=== PATIENT | male | born 1955 | race Caucasian/White ===

== ENCOUNTER 2021-03-03 05:04 | Day surgery (SDC) | payer OTHER, BC ==
[2021-02-25 18:47] VITALS: BMI 25.7
[2021-03-03 10:51] VITALS: TEMP 98
[2021-03-03 11:40] VITALS: BP 138/71; PULSE 58
== END 2021-03-03 11:54 | disposition home or self-care (01) ==
LOC: JASU-ENDO 05:04
PROVIDERS: ATTEND Internal Medicine Gastroenterology
PROC: 0DJD8ZZ Inspection of Lower Intestinal Tract, Via Natural or Artificial Opening Endoscopic (ICD-10-PCS; principal; 2021-03-03 10:00)
DX: Z12.11 Encounter for screening for malignant neoplasm of colon (principal); Z86.010 Personal history of colon polyps; K57.30 Diverticulosis of large intestine without perforation or abscess without bleeding; K64.8 Other hemorrhoids

== ENCOUNTER 2021-09-29 14:21 | Emergency (ER) | payer OTHER, BC ==
[2021-09-29 14:44] VITALS: BP 117/66; PULSE 74; TEMP 98.4; BMI 26.6
== END 2021-09-29 15:30 | disposition home or self-care (01) ==
LOC: FER 14:21
DX: S09.90XA Unspecified injury of head, initial encounter (principal); W00.0XXA Fall on same level due to ice and snow, initial encounter
CPT/HCPCS: 70450-TC; 99284-25

== ENCOUNTER 2022-08-04 10:02 | Emergency (ER) | payer OTHER, BC ==
[2022-08-04 10:14] VITALS: BP 130/70; PULSE 73; RESP 16; TEMP 98.6; BMI 28.1
== END 2022-08-04 10:43 | disposition home or self-care (01) ==
LOC: FER 10:02
DX: L03.012 Cellulitis of left finger (principal)
CPT/HCPCS: 99283-25

== ENCOUNTER 2023-05-14 21:54 | Observation (INO) | payer OTHER, BC ==
[2023-05-14 22:24] LABS: HEMATOCRIT 44.7 % (35.4-49); HEMOGLOBIN 15.4 G/dL (11.7-16.9); MCH 28.5 pg (25.7-33.7); MCHC 34.4 g/dl (32.0-35.9); MEAN PLT VOLUME 6.7 fl (7.5-11.1); PLATELET COUNT 245.2 10^3/uL (134-434); RBC 5.39 10^6/uL (4.00-5.60); RDW 15.2 % (11.9-15.9); WHITE BLOOD COUNT 9.4 10^3/uL (4.0-10.8)
[2023-05-14 22:40] LABS: ALBUMIN 4.3 g/dl (3.4-5.0); BLOOD UREA NITROGEN 21.8 mg/dl (7-18); CALCIUM 9.7 mg/dl (8.5-10.1); CREATININE 1.3 mg/dl (0.6-1.3); SGOT/AST 17.9 U/L (15-37); SGPT/ALT 18.4 U/L (7-52); TOT PROT 6.5 g/dl (6.4-8.2)
[2023-05-14 22:54] LABS: PLATELET ESTIMATE ADEQUATE
[2023-05-15 00:12] LABS: BILIRUBIN,TOTAL 0.4 mg/dL (0.2-1)
[2023-05-15] MEDS ORDERED: ASPIRIN 81 MG CHEWABLE TABLETS PO ONE (00:48)
[2023-05-15] MEDS ORDERED: ASPIRIN 81 MG CHEWABLE TABLETS ONE (00:54)
[2023-05-15] MEDS ORDERED: ACETAMINOPHEN 325 MG TABLET (FP) PO PRN (03:34)
[2023-05-15] MEDS ORDERED: DOCUSATE SODIUM 100 MG CAPSULE (FP) PO PRN (03:34)
[2023-05-15] MEDS ORDERED: MELATONIN 5 MG TABLETS PO PRN (03:43)
[2023-05-15 08:02] LABS: HEMOGLOBIN 14.9 G/dL (11.7-16.9); MCH 27.7 pg (25.7-33.7); MCHC 33.1 g/dl (32.0-35.9); MEAN CELL VOLUME 83.5 fl (80-96); PLATELET COUNT 230.8 10^3/uL (134-434); RBC 5.39 10^6/uL (4.00-5.60); RDW 15.1 % (11.9-15.9); WHITE BLOOD COUNT 8.5 10^3/uL (4.0-10.8)
[2023-05-15 08:43] LABS: BLOOD UREA NITROGEN 21.4 mg/dl (7-18); CREATININE 1.1 mg/dl (0.6-1.3); MAGNESIUM 2.3 mg/dL (1.8-2.4); PHOSPHOROUS 4.09 (2.5-4.9); POTASSIUM 4.2 mmol/L (3.5-5.1)
[2023-05-15] MEDS ORDERED: ATORVASTATIN CA 10 MG TABLET (FP) PO SCH (22:00)
[2023-05-16] MEDS ORDERED: ASPIRIN 81 MG CHEWABLE TABLETS PO SCH (06:00)
[2023-05-16 07:11] LABS: INR 0.94 (0.83-1.09); PROTHROMBIN TIME (PATIENT) 10.9 SEC (9.7-13.0)
[2023-05-16 07:14] LABS: ACTIVATED PTT 29.2 SECONDS (25.2-36.5)
[2023-05-16 08:05] VITALS: RESP 18
[2023-05-16 12:53] VITALS: BMI 29.5
[2023-05-16 14:03] VITALS: BP 146/58; PULSE 60; TEMP 98
== END 2023-05-16 14:00 | disposition short-term general hospital (02) ==
LOC: FER 21:54 → INTOOBSV 05-15 02:37 → FM/S 05-15 02:37 → UNDOADMOB 05-15 02:37 → JICU 05-15 03:35 → FM/S 05-15 12:08
PROVIDERS: ADMIT Internal Medicine; ATTEND Internal Medicine
DX: I21.4 Non-ST elevation (NSTEMI) myocardial infarction (principal); R94.39 Abnormal result of other cardiovascular function study; R07.89 Other chest pain; R77.8 Other specified abnormalities of plasma proteins; Z88.8 Allergy status to other drugs, medicaments and biological substances
CPT/HCPCS: 36415; 71045-TC-FY; 78452-TC; 80048; 80053; 80061; 83036; 83735; 84100; 84443; 84484; 85025; 85027; 85610; 85730; 87635; 93005; 93017; 93306-TC; 99285-25; A9502; G0378